=== PATIENT | male | born 1950 | race Hispanic/Latino ===

== ENCOUNTER → 2019-07-04 | Day surgery (SDC) | payer MEDICARE ==
--- NOTE | 2019-07-03 14:20 | NUR ---
Checked patient's temperature 98.5F via skin probe. Patient denies being out of the country or out of state in the last 14 days. Patient denies being around anyone who has been out of the country or out of state in the last 14 days. Patient denies being around anyone who has been exposed or diagnosed with COVID-19 in the last 14 days. Patient denies fever, cough, or shortness of breath in the last 14 days.
[2019-07-03 15:09] LABS: BASOPHILS % 0.6 % (0.0-1.0); EOSINOPHILS # (AUTO) 0.1 (0.0-0.4); EOSINOPHILS % 0.8 % (0.0-6.0); HEMATOCRIT 49.3 % (38.2-49.6); HEMOGLOBIN 16.1 g/dL (14.0-18.0); LYMPHOCYTES # (AUTO) 1.5 (1.0-3.2); LYMPHOCYTES % 24.2 % (18.0-39.1); MEAN CORPUSCULAR HEMOGLOBIN 28.4 pg (28-32); MEAN CORPUSCULAR HGB CONC 32.7 g/dL (31-35); MEAN CORPUSCULAR VOLUME 87.1 fL (81-99); MONOCYTES # (AUTO) 0.4 (0.2-0.8); MONOCYTES % 7.1 % (4.4-11.3); NEUTROPHILS # (AUTO) 4.1 (2.1-6.9); NEUTROPHILS % 66.8 % (38.7-80.0); PLATELET COUNT 224 x10e3/uL (140-360); RED BLOOD COUNT 5.66 x10e6/uL (4.3-5.7); RED CELL DISTRIBUTION WIDTH 14.3 % (11.7-14.4)
[2019-07-03 15:24] LABS: ALANINE AMINOTRANSFERASE 13 IU/L (0-55); ALBUMIN 4.1 g/dL (3.5-5.0); ALBUMIN/GLOBULIN RATIO 1.5 (0.8-2.0); ALKALINE PHOSPHATASE 58 IU/L (40-150); ANION GAP 10.8 mmol/L (8-16); BLOOD UREA NITROGEN 13 mg/dL (7-26); BUN/CREATININE RATIO 12 (6-25); CALCIUM 9.6 mg/dL (8.4-10.2); CARBON DIOXIDE 28 mmol/L (22-29); CHLORIDE 108 mmol/L (98-107); CREATININE, SERUM 1.12 mg/dL (0.72-1.25); EST GLOMERULAR FILTRATION RATE > 60 ML/MIN (60-); GLUCOSE 108 mg/dL (74-118); POTASSIUM 3.8 mmol/L (3.5-5.1); SODIUM 143 mmol/L (136-145)
[~2019-07-04] VITALS: Ht 182.9 cm; Wt 91.6 kg
[2019-07-04] VITALS (8 sets, daily range): BP systolic 108–145; BP diastolic 70–83
[~2019-07-04] MED LIST: ALPRAZOLAM 0.5 MG TAB ONE; ASPIR 8181 MG PO; ATORVASTATIN CA10 MG PO; DIPHENHYDRAMINE HCL 25 MG CAP ONE; FAMOTIDINE20 MG PO; FENTANYL CITRATE/PF 100MCG/2 ML INJ ONE; FINASTERIDE5 MG PO; FISH OIL 1,0001 EAC2 PO; FLOMAX0.4 MG PO; FLUTICASONE P15.8 ML; HEPARIN SOD (PORCINE) 1000 UNIT/ML 30ML ONE; HEPARIN SOD/SOD CHLORIDE 2,000 ML ONE; IOPAMIDOL 370 MG/ML 200 ML INFUS..BTL INJ ONE; JARDIANCE10 MG PO; LEVOCETIRIZINE D5 MG PO; LIDOCAINE HCL 2% LOCAL 20 ML VIAL ONE; METFORMIN HCL500 MG PO; MIDAZOLAM HCL 2 MG/2 ML VIAL ONE; NITROGLYCERIN/D5W 200 MCG/ML 250 ML ONE; PIOGLITAZONE15 MG PO; RAMIPRIL5 MG PO; SODIUM CHLORIDE 0.9% 1000ML 2,000 ML ONE; STOOL SOFTENER1 EACH PO; VERAPAMIL HCL 2.5 MG/ML 2 ML VIAL ONE; VITAMIN B-121000 MCG PO; VITAMIN D35000 UNI2 PO; VITAMIN E400 UNIT PO
--- OUTSIDE RECORDS SUMMARY | 2019-07-04 11:30 | XMS REPORT | Summary of Care ---
Author Author Elisha Kemp M.A. 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 Sensorineural hearing loss, bilateral (389.18, H90.3) Status: Active Tinnitus of both ears (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.30, H93.13) Status: Active Medications Name Dates Details metFORMIN HCl TABS Active Metoprolol Tartrate TABS * Refills: 0 Active Losartan Potassium TABS * Refills: 0 Active Aspirin TABS * Refills: 0 Active Atorvastatin Calcium TABS * Refills: 0 Active Terbinafine HCl TABS * Refills: 0 Active Amoxicillin TABS * Refills: 0 Active Benzonatate CAPS * Refills: 0 Active Tamsulosin HCl CAPS * Refills: 0 Active Finasteride TABS * Refills: 0 Active NexIUM CPDR * Refills: 0 Active Gabapentin TABS * Refills: 0 Active Allergies and Adverse Reactions Name Dates Details tetracycline (Allergy) Status: Active Past Medical History Name Dates Details History of arthritis (V13.4, Z87.39) Status: Resolved History of diabetes mellitus (V12.29, Z86.39) Status: Resolved History of hypertension (V12.59, Z86.79) Status: Resolved Procedures Procedure Dates Details ENG Date: 18-Jun-2018 History of Hernia Repair Completed Immunization Name Dates Details Immunizations not documented Family History Name Dates Details Family history of cardiac disorder (V17.49, Z82.49) Comments: Family History Status: Active Family history of malignant neoplasm (V16.9, Z80.9) Comments: Family History Status: Active Social History Name Dates Details - Status: Name Dates Details Never smoker Vital Signs Date Test Result Details 24-Jul-20188:28 BP Systolic 117 mm[Hg] Status: BP Diastolic 68 mm[Hg] Status: Height 73 in Status: Weight 228 lb Status: Body Mass Index Calculated 30.08 kg/m2 Status: Body Surface Area Calculated 2.28 m2 Status: Heart Rate 76 /min Status: Results Date Description Value Details Results not documented Plan of Care Name Dates Details Planned Observations Planned Goals not documented Planned Encounters [PT] Vestibular/Balance Therapy Neurophthalmologist Referral Interventions Provided Plan* 1. Has 62% weakness in the right. Will set up with vestibular rehab. Will also set up with [facility]. Will need annual hearing testing for the hearing loss. Instructions Name Dates Details Instructions not documented Encounters Appointment; NGOZI LINARES M.D. Encounter Diagnosis: Problem not documented On: 18-Jun-2018 13:15 Appointment; AUDIOLOGY, LAB Encounter Diagnosis: Problem not documented On: 12-Jul-2018 10:00 Appointment; NGOZI LINARES M.D. Encounter Diagnosis: Problem not documented On: 24-Jul-2018 8:00
--- NOTE | 2019-07-04 14:33 | Operative Report ---
DATE OF PROCEDURE: 07/04/2019 SURGEON: Clay Aranda MD INDICATION: Coronary artery disease, unstable angina, abnormal stress test. PROCEDURES PERFORMED: 1. Left heart catheterization, selective coronary angiography. 2. Deployment of right wrist TR band. 3. Conscious sedation administration. 4. Hemodynamic and neurological monitoring and recovery by cath lab nurse RN and supervision by MD for 35 minutes. COMPLICATIONS: None. RECOMMENDATION: Aggressive medical therapy including addition of ranolazine for anginal symptoms. DESCRIPTION OF PROCEDURE: Access obtained in the right radial artery. A 6-Maltese sheath was placed. Coronary angiography demonstrated patent left main, left anterior descending artery is a 50% proximal stenosis, distal vessel diffuse 30% to 50% stenosis, ostial diagonal 70% stenosis, 2 mm vessel ostial circumflex 50% stenosis, right coronary artery diffuse 30% to 50% stenosis. No intervention was deemed necessary. Medical therapy was recommended. Right wrist TR band applied. The patient discharged home. MD JACKIE Fiore/MODL /[id number]
--- NOTE | 2019-07-04 15:30 | NUR ---
TR band successfully removed. Education understood and repeated back for radial precautions. Lunch tray served, + appetite
--- NOTE | 2019-07-04 16:00 | NUR ---
Pt meets DC criteria. right radial assessed for s/s of complication and presence of hematoma, +neurovascular function present. skin warm, dry, no discolor, and pulses present. IV removed from left hand. Distal tip appears intact. VS WNL. Pt denies pain, sob, or need at this time. Family outside ready to receive patient. Review of discharge paperwork and follow up instructions. verbalized understanding. Pt to wheelchair and transported to front of hospital. Transferred to private vehicle under own strength w/o incident with DC paperwork, coronary diagram, and RX in hand. - cgf
== END | disposition home or self-care (01) ==
LOC: CATH LAB 11:27
PROVIDERS: ATTEND Internal Medicine Interventional Cardiology
DX: I25.110 Atherosclerotic heart disease of native coronary artery with unstable angina pectoris (principal); R94.39 Abnormal result of other cardiovascular function study; I10 Essential (primary) hypertension; E78.5 Hyperlipidemia, unspecified; R07.2 Precordial pain; E11.69 Type 2 diabetes mellitus with other specified complication; Z88.1 Allergy status to other antibiotic agents; Z01.812 Encounter for preprocedural laboratory examination; Z79.82 Long term (current) use of aspirin; Z79.84 Long term (current) use of oral hypoglycemic drugs; Z82.49 Family history of ischemic heart disease and other diseases of the circulatory system
CPT/HCPCS: 36415; 80053; 85025; 93454; C1769; C1887; J1644; J2001; J2250; J3010; J7030; Q9967; 99152